=== PATIENT | male | born 1945 | race Caucasian/White ===

== ENCOUNTER 2023-12-16 08:06 | Day surgery (SDC) | payer MEDICARE, SELFPAY ==
[2023-12-09 07:49] VITALS: BMI 31.6
[2023-12-16] VITALS (16 sets, daily range): BP systolic 128–174; BP diastolic 69–87; BMI 28.0
--- NOTE | 2023-12-16 12:23 | PTCARENOTE ---
Pt recd s/p linq removal. 2x2 and tegaderm inplace. denies any pain. Reviewed all instructions with good understanding.
--- NOTE | 2023-12-16 12:32 | ITS.CL.IMPLP ---
[employer] - Implant Loop
Implant Loop
Procedure Report:
Date of Procedure: December 16, 2023.
Procedure: Insertable Loop Recorder Explant.
Indication: Loop at end of service. Prolonged cardiac rhythm monitoring no longer needed.
Performing physician: Hamilton Alford MD, [facility].
Explant: [employer] Reveal Linq; Model# LNQ11; Serial# [id number]. (implanted 12/24/2019).
Technique: A time out was performed per protocol. The patient was prepped and draped in the usual fashion. Anesthesia was administered by the anesthesia staff. Local anesthetic was applied to the left prepectoral subcutaneous tissue. An incision was
made over the superior aspect of the device. Dissection was carried to the capsule. The capsule was entered. The old device was explanted. The pocket appeared normal. Hemostasis was excellent. The pocket was irrigated saline. The incision was
closed with 4-0 Monocryl suture. The skin was closed with steri-strips. The estimated blood loss was less than 0.5 mL. There were no complications. No fluoroscopy was used.
Conclusion: Uncomplicated insertable loop explantation.
Recommendation: Routine incision care.
cc: Leighton Camargo MD and Uri Flores MD.
== END 2023-12-16 12:20 | disposition home or self-care (01) ==
LOC: CATH 08:06
PROVIDERS: ATTENDING PHYSICIAN Internal Medicine Cardiovascular Disease; FAMILY PHYSICIAN Internal Medicine; OTHER PHYSICIAN Internal Medicine Cardiovascular Disease
DX: Z09 Encounter for follow-up examination after completed treatment for conditions other than malignant neoplasm (principal); Z86.73 Personal history of transient ischemic attack (TIA), and cerebral infarction without residual deficits; I10 Essential (primary) hypertension; E78.5 Hyperlipidemia, unspecified; Z87.891 Personal history of nicotine dependence; K21.9 Gastro-esophageal reflux disease without esophagitis; E66.9 Obesity, unspecified; Z68.31 Body mass index [BMI] 31.0-31.9, adult; Z79.82 Long term (current) use of aspirin
CPT/HCPCS: 33286; 93005

== ENCOUNTER 2025-10-08 06:34 | Day surgery (SDC) | payer MEDICARE, SELFPAY | END 2025-10-08 12:28 | disposition home or self-care (01) | LOC: GI 06:34 | PROVIDERS: ATTENDING PHYSICIAN Specialist | DX: K92.1 Melena (principal); K31.7 Polyp of stomach and duodenum; K31.89 Other diseases of stomach and duodenum; E78.2 Mixed hyperlipidemia; R89.7 Abnormal histological findings in specimens from other organs, systems and tissues | CPT/HCPCS: 43239; 88305; 88342 ==